=== PATIENT | female | born 1990 | race African-American/Black ===

== ENCOUNTER 2021-04-26 10:53 | Observation (INO) ==
[2021-04-26] MEDS ORDERED: ONDANSETRON 4 MG/2 ML VIAL IV PRN (11:13)
[2021-04-26] MEDS ORDERED: LACTATED RINGERS 500 ML IV ONE (11:13)
[2021-04-26] MEDS ORDERED: METOCLOPRAMIDE 10 MG/2 ML VIAL ONE (12:09)
[2021-04-26] MEDS: METOCLOPRAMIDE 10 MG/2 ML VIAL IV SCH ×2 (12:10→20:51)
[2021-04-26] MEDS: FAMOTIDINE 20 MG/2 ML VIAL IV SCH ×2 (12:40→23:28)
[2021-04-26] MEDS: methylPREDNISolone SOD SUC 40 MG/1 ML VIAL IV SCH ×2 (12:44→20:50)
[2021-04-26 13:12] LABS: Basophils % 0.3 % (0.0-0.8); Eosinophils # 0.1 10*3/uL (0.0-0.87); Eosinophils % 0.8 % (0.00-10.9); Hematocrit 35.3 VOL% (35.7-47.0); Hemoglobin 11.9 GM/DL (12.0-16.0); Immature Granulocytes % 0.5 %; Immature Granulocytes Absolute 0.04 #; Mean Corpuscular HGB Conc 33.7 GM/DL (32-36); Mean Corpuscular Volume 89.1 FL (87-102); Mean Platelet Volume 9.4 FL (9.6-12.0); Monocytes % 6.4 % (1.7-12.7); Platelet Count 338 T/CUMM (130-400); Red Blood Count 3.96 MC/CUMM (3.8-5.5); Red Cell Distribution Width 12.2 % (9.3-17.3); White Blood Count 7.8 T/CUMM (4-12)
[2021-04-26] MEDS: LACTATED RINGERS 1,000 ML IV SCH ×2 (13:15→23:28)
[2021-04-26 13:29] LABS: Albumin 3.4 G/DL (3.4-5.0); Bilirubin,Total 0.4 MG/DL (0.20-1.00); Osmolality,Calculated 271.8 MOS/KG (273-304); Potassium 2.8 MMOL/L (3.5-5.1); Total Protein 7.7 G/DL (6.4-8.2)
[2021-04-26 13:35] LABS: Free T4 (Free Thyroxine) 1.16 NG/DL (0.76-1.46); Thyroid Stimulating Hormone 0.242 uIU/ml (0.358-3.74)
[2021-04-26] MEDS: POTASSIUM CHLORIDE RIDER 10 MEQ/100 ML PREMIX IV PRN ×5 (15:46→19:48)
[2021-04-27] MEDS: methylPREDNISolone SOD SUC 40 MG/1 ML VIAL IV SCH ×2 (04:18→11:34)
[2021-04-27] MEDS: METOCLOPRAMIDE 10 MG/2 ML VIAL IV SCH ×2 (04:19→11:43)
[2021-04-27 04:29] LABS: Albumin 3.2 G/DL (3.4-5.0); Bilirubin,Total 0.4 MG/DL (0.20-1.00); Calcium 8.9 MG/DL (8.5-10.1); Osmolality,Calculated 272.7 MOS/KG (273-304); Potassium 3.8 MMOL/L (3.5-5.1); Total Protein 7.2 G/DL (6.4-8.2)
[2021-04-27] MEDS: LACTATED RINGERS 1,000 ML IV SCH (05:55)
[2021-04-27] MEDS ORDERED: BISACODYL 10 MG SUPP RECTAL PRN (08:43)
[2021-04-27] MEDS ORDERED: POLYETHYLENE GLYCOL POWDER 17 GM PACK PO PRN (08:43)
[2021-04-27] MEDS ORDERED: SCOPOLAMINE 1.5 MG PATCH TRANSDERM ONE (10:43)
[2021-04-27] MEDS: FAMOTIDINE 20 MG/2 ML VIAL IV SCH (11:30)
[2021-04-27 12:15] VITALS: BP 127/75
== END 2021-04-27 14:20 | disposition home or self-care (01) ==
LOC: N.OB
PROVIDERS: ADMIT Obstetrics & Gynecology; ATTEND Obstetrics & Gynecology

== ENCOUNTER 2021-05-24 12:22 | Observation (INO) ==
[2021-05-24] MEDS ORDERED: methylPREDNISolone SOD SUC 125 MG/2 ML VIAL IV ONE (13:15)
[2021-05-24] MEDS ORDERED: ONDANSETRON 4 MG/2 ML VIAL IV PRN (13:17)
[2021-05-24] MEDS: DEXTROSE 5% LACTATED RINGERS 1,000 ML IV SCH (13:28)
[2021-05-24] MEDS: METOCLOPRAMIDE 10 MG/2 ML VIAL IV PRN ×2 (13:28→20:46)
[2021-05-24 13:57] LABS: Bilirubin,Urine Negative (Negative); Blood, Urine Negative (Negative); Glucose,Urine (UA) Negative (Negative); Ketones,Urine Negative (Negative); Nitrite,Urine Negative (Negative); Protein,Urine Negative; RBC,Urine <1 /HPF (0-4); Squamous Epithelial Cell,Urine Occasional /HPF (0-10); Urine Appearance CLEAR (Clear); Urine Color Yellow (Yellow); Urine Specific Gravity 1.004 (1.001-1.035); Urine Urobilinogen < 2.0 EU/DL (0.2-1.0)
[2021-05-24] MEDS ORDERED: INFLUENZA VIRUS VACCINE 0.5 ML SYRINGE IM ONE (14:02)
[2021-05-24 14:30] LABS: Basophils % 0.3 % (0.0-0.8); Eosinophils # 0.1 10*3/uL (0.0-0.87); Eosinophils % 1.1 % (0.00-10.9); Hematocrit 34.5 VOL% (35.7-47.0); Hemoglobin 12.1 GM/DL (12.0-16.0); Immature Granulocytes % 0.3 %; Immature Granulocytes Absolute 0.02 #; Lymphocytes # 1.8 10*3/uL (1.4-4.0); Lymphocytes % 24.5 % (21.3-54.2); Mean Corpuscular HGB Conc 35.1 GM/DL (32-36); Mean Corpuscular Volume 86.7 FL (87-102); Mean Platelet Volume 9.4 FL (9.6-12.0); Monocytes % 6.7 % (1.7-12.7); Neutrophils % 67.1 % (38.7-73.9); Platelet Count 345 T/CUMM (130-400); Red Blood Count 3.98 MC/CUMM (3.8-5.5); Red Cell Distribution Width 12.4 % (9.3-17.3); White Blood Count 7.3 T/CUMM (4-12)
[2021-05-24 14:59] LABS: Alanine Aminotransferase < 9 U/L (13-56); Albumin 3.1 G/DL (3.4-5.0); Alkaline Phosphatase 67 U/L (45-117); Aspartate Amino Transferase 9 U/L (0-37); Blood Urea Nitrogen < 1 MG/DL (7-18); Calcium 8.9 MG/DL (8.5-10.1); Carbon Dioxide 26 MMOL/L (21-32); Estimated Glom Filtration Rate 143 ML/MIN; Glucose 111 MG/DL (74-106); Osmolality,Calculated 268.3 MOS/KG (273-304); Sodium 136 MMOL/L (136-145); Total Protein 7.5 G/DL (6.4-8.2)
[2021-05-24 15:02] LABS: Potassium 2.5 MMOL/L (3.5-5.1)
[2021-05-24] MEDS ORDERED: POTASSIUM CHLORIDE RIDER 10 MEQ/100 ML PREMIX IV PRN (15:03)
[2021-05-24] MEDS: POTASSIUM CHLORIDE RIDER 10 MEQ/100 ML PREMIX IV PRN ×5 (15:15→22:04)
[2021-05-24] MEDS: MULTIVITAMIN INJ 10 ML in DEXTROSE 5% NACL 0.45% 1,000 ML IV SCH (22:43)
[2021-05-25] MEDS: POTASSIUM CHLORIDE RIDER 10 MEQ/100 ML PREMIX IV PRN (00:10)
[2021-05-25] MEDS: METOCLOPRAMIDE 10 MG/2 ML VIAL IV PRN (05:34)
[2021-05-25] MEDS: POTASSIUM CHLORIDE 20 MEQ PACK PO SCH ×7 (07:30→22:09)
[2021-05-25] MEDS: DEXTROSE 5% LACTATED RINGERS 1,000 ML IV SCH (11:13)
[2021-05-25] MEDS ORDERED: PANTOPRAZOLE 40 MG TABLET PO ONE (12:09)
[2021-05-25] MEDS: PANTOPRAZOLE 40 MG TABLET PO SCH (12:12)
[2021-05-25] MEDS ORDERED: POTASSIUM CHLORIDE 20 MEQ PACK PO ONE (15:30)
[2021-05-25] MEDS ORDERED: diphenhydrAMINE CAP 25 MG CAPSULE PO PRN (19:31)
[2021-05-25] MEDS: ALUMINUM/MAGNES/SIMETH MAX STR 30 ML UDCUP PO PRN (19:55)
[2021-05-25] MEDS ORDERED: ONDANSETRON ODT 4 MG TABLET PO PRN (22:21)
[2021-05-26] MEDS: POTASSIUM CHLORIDE 20 MEQ PACK PO SCH (00:07)
[2021-05-26] MEDS: ALUMINUM/MAGNES/SIMETH MAX STR 30 ML UDCUP PO PRN (04:33)
[2021-05-26] MEDS: MULTIVITAMIN INJ 10 ML in DEXTROSE 5% NACL 0.45% 1,000 ML IV SCH (06:36)
[2021-05-26] MEDS: POTASSIUM CHLORIDE 20 MEQ TABLET PO PRN ×2 (08:08→09:32)
[2021-05-26] MEDS: PANTOPRAZOLE 40 MG TABLET PO SCH (08:09)
[2021-05-26 11:01] VITALS: BP 116/67
== END 2021-05-26 12:10 | disposition home or self-care (01) ==
LOC: N.OB
PROVIDERS: ADMIT Obstetrics & Gynecology; ATTEND Obstetrics & Gynecology

== ENCOUNTER 2021-05-31 15:01 | Observation (INO) ==
[2021-05-31] MEDS ORDERED: MULTIVITAMIN INJ 10 ML in DEXTROSE 5% NACL 0.9% 1,000 ML IV SCH (16:00)
[2021-05-31] MEDS ORDERED: SIMETHICONE CHEW 125 MG TABLET PO PRN (17:27)
[2021-05-31] MEDS ORDERED: ALUMINUM/MAGNES/SIMETH MAX STR 30 ML UDCUP PO PRN (17:29)
[2021-05-31] MEDS ORDERED: SCOPOLAMINE 1.5 MG PATCH TRANSDERM SCH (17:30)
[2021-05-31 17:43] LABS: Basophils % 0.3 % (0.0-0.8); Eosinophils % 0.4 % (0.00-10.9); Hematocrit 36.3 VOL% (35.7-47.0); Hemoglobin 12.2 GM/DL (12.0-16.0); Immature Granulocytes % 0.7 %; Immature Granulocytes Absolute 0.07 #; Lymphocytes # 2.5 10*3/uL (1.4-4.0); Mean Corpuscular HGB Conc 33.6 GM/DL (32-36); Mean Corpuscular Volume 87.9 FL (87-102); Mean Platelet Volume 9.1 FL (9.6-12.0); Monocytes % 6.2 % (1.7-12.7); Neutrophils % 67.4 % (38.7-73.9); Platelet Count 422 T/CUMM (130-400); Red Blood Count 4.13 MC/CUMM (3.8-5.5); Red Cell Distribution Width 12.7 % (9.3-17.3); White Blood Count 9.9 T/CUMM (4-12)
[2021-05-31] MEDS: ONDANSETRON 4 MG/2 ML VIAL IV PRN ×2 (17:44→22:28)
[2021-05-31 18:18] LABS: Albumin 3.1 G/DL (3.4-5.0); Bilirubin,Total 0.7 MG/DL (0.20-1.00); Calcium 9.2 MG/DL (8.5-10.1); Osmolality,Calculated 271.8 MOS/KG (273-304); Potassium 2.7 MMOL/L (3.5-5.1); Total Protein 7.8 G/DL (6.4-8.2)
[2021-05-31] MEDS: POTASSIUM CHLORIDE RIDER 10 MEQ/100 ML PREMIX IV PRN ×5 (18:47→23:10)
[2021-05-31] MEDS ORDERED: PROMETHAZINE 25 MG/1 ML VIAL IM PRN (19:13)
[2021-05-31] MEDS ORDERED: PANTOPRAZOLE 40 MG VIAL IV ONE (19:43)
[2021-05-31] MEDS: PANTOPRAZOLE 40 MG VIAL IV SCH ×2 (19:48→22:44)
[2021-05-31] MEDS ORDERED: DEXTROSE 5% LACTATED RINGERS 1,000 ML IV SCH (22:00)
[2021-05-31] MEDS: ALUMINUM/MAGNES/SIMETH MAX STR 30 ML UDCUP PO PRN (22:28)
[2021-06-01] MEDS: METOCLOPRAMIDE 10 MG/2 ML VIAL IV SCH ×2 (01:05→09:13)
[2021-06-01] MEDS: ALUMINUM/MAGNES/SIMETH MAX STR 30 ML UDCUP PO PRN (02:28)
[2021-06-01] MEDS: ONDANSETRON 4 MG/2 ML VIAL IV PRN ×2 (02:28→06:47)
[2021-06-01] MEDS: LACTATED RINGERS 1,000 ML IV SCH ×2 (03:18→13:33)
[2021-06-01] MEDS: POTASSIUM CHLORIDE RIDER 10 MEQ/100 ML PREMIX IV PRN ×7 (04:38→14:43)
[2021-06-01] MEDS: PANTOPRAZOLE 40 MG VIAL IV SCH ×2 (08:02→09:18)
[2021-06-01 14:49] VITALS: BP 113/67
== END 2021-06-01 16:00 | disposition home or self-care (01) ==
LOC: N.OB
PROVIDERS: ADMIT Obstetrics & Gynecology; ATTEND Obstetrics & Gynecology

== ENCOUNTER 2021-11-05 21:15 | Inpatient (IN) ==
[2021-11-05] MEDS ORDERED: LACTATED RINGERS 1,000 ML IV ONE (22:33)
[2021-11-05] MEDS ORDERED: MEPERIDINE 50 MG/1 ML VIAL IV PRN (22:33)
[2021-11-05] MEDS ORDERED: ONDANSETRON 4 MG/2 ML VIAL IV PRN (22:42)
[2021-11-05] MEDS ORDERED: hydrOXYzine HCL 25 MG/1 ML VIAL IM PRN (23:41)
[2021-11-05] MEDS ORDERED: FAMOTIDINE 20 MG/2 ML VIAL IV ONE (23:41)
[2021-11-05] MEDS ORDERED: ePHEDrine 50 MG/ML VIAL IV PRN (23:41)
[2021-11-05] MEDS ORDERED: diphenhydrAMINE 50 MG/1 ML VIAL IV PRN ×2 (23:41)
[2021-11-05] MEDS ORDERED: NALOXONE 0.4 MG/ML VIAL IV PRN (23:41)
[2021-11-05] MEDS ORDERED: CITRIC ACID/SODIUM CITRATE 30 ML UDCUP PO ONE (23:41)
[2021-11-05] MEDS ORDERED: PROMETHAZINE 25 MG/1 ML VIAL IM ONE (23:41)
[2021-11-05] MEDS ORDERED: fentaNYL 2 MCG/ROPIV 0.2% EPID 100 ML EPIDURAL SCH (23:45)
[2021-11-05] MEDS ORDERED: LACTATED RINGERS 1,000 ML IV SCH (23:45)
[2021-11-06 00:23] LABS: Basophils # 0.1 10*3/uL (0.0-0.2); Basophils % 0.5 % (0.0-0.8); Eosinophils # 0.1 10*3/uL (0.0-0.87); Hemoglobin 12.9 GM/DL (12.0-16.0); Immature Granulocytes % 0.5 %; Immature Granulocytes Absolute 0.05 #; Lymphocytes # 2.8 10*3/uL (1.4-4.0); Lymphocytes % 27.3 % (21.3-54.2); Mean Corpuscular HGB Conc 33.9 GM/DL (32-36); Mean Corpuscular Volume 88.8 FL (87-102); Monocytes % 5.1 % (1.7-12.7); Neutrophils % 65.6 % (38.7-73.9); Platelet Count 374 T/CUMM (130-400); Red Blood Count 4.28 MC/CUMM (3.8-5.5); Red Cell Distribution Width 14.4 % (9.3-17.3); White Blood Count 10.4 T/CUMM (4-12)
[2021-11-06] MEDS ORDERED: INFLUENZA VIRUS VACCINE 0.5 ML SYRINGE IM ONE (00:24)
[2021-11-06 00:38] LABS: Cord Arterial Blood HCO3 22.2 MMOL/L
[2021-11-06 00:41] LABS: Cord Venous Blood HCO3 22.4 MMOL/L; Cord Venous Blood PCO2 45.7 MMHG; Cord Venous Blood PO2 26.7
[2021-11-06] MEDS ORDERED: OXYTOCIN/LR 20 UNIT/1,000 ML BAG IV ONE (01:46)
[2021-11-06] MEDS ORDERED: oxyCODONE/ACETAMINOPHEN 5-325 MG TABLET PO PRN (05:46)
[2021-11-06] MEDS: IBUPROFEN 800 MG TABLET PO PRN ×3 (05:55→23:34)
[2021-11-06 07:20] LABS: Basophils % 0.2 % (0.0-0.8); Eosinophils % 0.1 % (0.00-10.9); Hematocrit 34.5 VOL% (35.7-47.0); Hemoglobin 11.4 GM/DL (12.0-16.0); Immature Granulocytes % 0.6 %; Immature Granulocytes Absolute 0.08 #; Lymphocytes % 14.5 % (21.3-54.2); Mean Corpuscular Volume 89.8 FL (87-102); Mean Platelet Volume 9.4 FL (9.6-12.0); Monocytes % 4.8 % (1.7-12.7); Neutrophils % 79.8 % (38.7-73.9); Platelet Count 362 T/CUMM (130-400); Red Blood Count 3.84 MC/CUMM (3.8-5.5); Red Cell Distribution Width 14.4 % (9.3-17.3); White Blood Count 13.8 T/CUMM (4-12)
[2021-11-06] MEDS: DOCUSATE SODIUM 100 MG CAPSULE PO SCH ×2 (09:06→20:11)
[2021-11-06] MEDS ORDERED: ACETAMINOPHEN 325 MG TABLET PO PRN (10:27)
[2021-11-06] MEDS ORDERED: ALUMINUM/MAGNES/SIMETH MAX STR 30 ML UDCUP PO PRN (21:29)
[2021-11-07] MEDS: DOCUSATE SODIUM 100 MG CAPSULE PO SCH ×2 (09:04→21:01)
[2021-11-07] MEDS: IBUPROFEN 800 MG TABLET PO PRN ×2 (12:27→20:59)
[2021-11-08 07:21] VITALS: BP 131/88
[2021-11-08] MEDS: DOCUSATE SODIUM 100 MG CAPSULE PO SCH (08:34)
== END 2021-11-08 11:22 | disposition home or self-care (01) | DRG 807 ==
LOC: N.LDOUT 21:15 → N.LD 21:22 → N.OB 11-06 01:50
PROVIDERS: ADMIT Obstetrics & Gynecology; ATTEND Obstetrics & Gynecology